=== PATIENT | female | born 1995 | race African-American/Black ===

== ENCOUNTER 2021-11-13 21:33 | Emergency (ER) | payer SELFPAY ==
[~2021-11-13] VITALS: Ht 165.1 cm; Wt 53.1 kg
[2021-11-13 22:48] VITALS: BP 120/75
[2021-11-13] MEDS ORDERED: DIPH25TA53 PO (23:40)
[2021-11-13 23:56] VITALS: BP 120/75
--- NOTE | 2021-11-13 23:57 | NUR ---
Patient discharged with v/s stable. Written and verbal after care instructions given and explained. Patient alert, oriented and verbalized understanding of instructions. Ambulatory with steady gait. All questions addressed prior to discharge. ID band removed. Patient advised to follow up with PMD. Rx of Benadryl given. Patient educated on indication of medication including possible reaction and side effects. Opportunity to ask questions provided and answered.
== END 2021-11-13 23:57 | disposition home or self-care (01) ==
LOC: MED 21:33
DX: F41.9 Anxiety disorder, unspecified (principal); M79.18 Myalgia, other site; M54.50 Low back pain, unspecified; G47.00 Insomnia, unspecified; T42.6X5A Adverse effect of other antiepileptic and sedative-hypnotic drugs, initial encounter; Z79.899 Other long term (current) drug therapy; Y92.89 Other specified places as the place of occurrence of the external cause
CPT/HCPCS: 99282